=== PATIENT | male | born 1990 | race Caucasian/White ===

== ENCOUNTER 2017-08-09 17:00 | Observation (INO) | payer OTHER ==
[~2017-08-09] VITALS: Ht 175.3 cm; Wt 97.6 kg
[~2017-08-09 17:00] MED LIST: HYDR-3533 PO; OCUF0.3D OS; POLY10O OS
[2017-08-09 17:02] VITALS: BP 134/80; PULSE 96; RESP 16; TEMP 98.2; O2SAT 91; O2SAT 95
--- NOTE | 2017-08-09 17:51 | PD ---
HPI . Seizure Chief Complaint: Seizure Time Seen by Provider: 17:12 Travel History International Travel<30 days: No Contact w/Intl Traveler<30days: No Traveled to known affect area: No History of Present Illness HPI This patient presents to us following a seizure. He has a history of seizures but has not had one in the past several years. He is not currently taking anti- seizure medications. He had a witnessed seizure at his home and fell flat on his face. Rescue was called, he was immobilized and brought to the hospital. He has no complaints at this time. The etiology of the seizure is unknown. The incident occurred just prior to arrival and has now resolved. PFSH Past Medical History Hx Anticoagulant Therapy: No Cancer: No Cardiovascular Problems: No Chemotherapy: No Cerebrovascular Accident: No Diabetes: No Diminished Hearing: No Hepatitis: No Hiatal Hernia: No Medical other: Yes (CONVERSION DISORDER) Respiratory: No Immunizations Current: No Seizures: Yes (STATES HAS BEEN CLEARED OF SEIZURES FOR YEARS) Past Surgical History Eye Surgery: Yes (RT ORBITAL FX lasik) Pacemaker: No Other Surgery: No Social History Alcohol Use: Yes (OCCASIONAL) Tobacco Use: No Substance Use: No Allergies-Medications (Allergen,Severity, Reaction): Coded Allergies: No Known Allergies (Verified Adverse Reaction, Unknown, 08/09/17) Reported Meds & Prescriptions Reported Meds & Active Scripts Active Review of Systems Except as stated in HPI: all other systems reviewed are Neg Physical Exam Narrative GENERAL: Patient is now awake and alert. SKIN: warm/dry. Contusion of the forehead. HEAD: Normocephalic. EYES: Pupils equal and round. No scleral icterus. No injection or drainage. ENT: No nasal bleeding or discharge. Mucous membranes pink and moist. NECK: Trachea midline. Full range of motion without pain.. CARDIOVASCULAR: Regular rate and rhythm. Heart sounds normal. RESPIRATORY: No accessory muscle use. Clear to auscultation. Breath sounds equal bilaterally. GASTROINTESTINAL: Abdomen soft. Nontender. Bowel sounds present. Nondistended. MUSCULOSKELETAL: No obvious deformities. NEUROLOGICAL: Awake and alert. No obvious cranial nerve deficits. Motor grossly within normal limits. Normal speech. PSYCHIATRIC: Appropriate mood and affect; insight and judgment normal. Data Data Last Documented VS Vital Signs Date Time Temp Pulse Resp B/P (MAP) Pulse Ox O2 Delivery O2 Flow Rate FiO2 08/09/17 18:44 114 166/90 (115) Nasal Cannula 2.00 08/09/17 18:24 16 98 08/09/17 17:[address] Brain W/O Iv Contrast(Rout) (08/09/17 17:14) Cath For Specimen (08/09/17 18:36) Drug Screen, Random Urine (08/09/17 18:36) Lorazepam Inj (Ativan Inj) (08/09/17 18:45) Complete Blood Count With Diff (08/09/17 18:40) Basic Metabolic Panel (Bmp) (08/09/17 18:40) Ecg Monitoring (08/09/17 18:40) Iv Access Insert/Monitor (08/09/17 18:40) Oximetry (08/09/17 18:40) Sodium Chloride 0.9% Flush (Ns Flush) (08/09/17 18:45) Consult Neurology (08/09/17 ) Admit Order (Ed Use Only) (08/09/17 20:05) Labs Laboratory Tests Test 08/09/17 18:50 08/09/17 19:27 White Blood Count 22.4 TH/MM3 Red Blood Count 4.91 MIL/MM3 Hemoglobin 15.6 GM/DL Hematocrit 44.4 % Mean Corpuscular Volume 90.5 FL Mean Corpuscular Hemoglobin 31.7 PG Mean Corpuscular Hemoglobin Concent 35.0 % Red Cell Distribution Width 12.4 % Platelet Count 93 TH/MM3 Mean Platelet Volume 10.2 FL Neutrophils (%) (Auto) 75.0 % Lymphocytes (%) (Auto) 15.9 % Monocytes (%) (Auto) 5.9 % Eosinophils (%) (Auto) 0.2 % Basophils (%) (Auto) 3.0 % Neutrophils # (Auto) 16.8 TH/MM3 Lymphocytes # (Auto) 3.6 TH/MM3 Monocytes # (Auto) 1.3 TH/MM3 Eosinophils # (Auto) 0.0 TH/MM3 Basophils # (Auto) 0.7 TH/MM3 CBC Comment DIFF FINAL Differential Comment Platelet Estimate LOW Platelet Morphology Comment NORMAL Red Cell Morphology Comment NORMAL Blood Urea Nitrogen 14 MG/DL Creatinine 1.30 MG/DL Random Glucose 95 MG/DL Calcium Level 9.0 MG/DL Sodium Level 140 MEQ/L Potassium Level 3.8 MEQ/L Chloride Level 106 MEQ/L Carbon Dioxide Level 22.6 MEQ/L Anion Gap 11 MEQ/L Estimat Glomerular Filtration Rate 66 ML/MIN Urine Opiates Screen NEG Urine Barbiturates Screen NEG Urine Amphetamines Screen NEG Urine Benzodiazepines Screen POS Urine Cocaine Screen NEG Urine Cannabinoids Screen NEG MDM Medical Decision Making Medical Screen Exam Complete: Yes Emergency Medical Condition: Yes Differential Diagnosis My differential diagnosis of head trauma includes but is not limited to scalp contusion, concussion, intracerebral hemorrhage. Differential diagnosis of seizure includes but is not limited to epilepsy, electrolyte abnormality, previous stroke, closed head injury Narrative Course This patient has a known seizure disorder. He has not had a seizure for several years and is not currently taking any medications. He had a seizure today and hit his head. CT is pending to rule out intracranial injury. Assuming that is normal, I will have him follow up with his neurologist to discuss seizure medication. This patient had another seizure here. He was given Ativan 2 mg IV. Last Impressions Head CT 08/09/17 6329 Signed Impressions: Service Date/Time: Wednesday, August 09, 2017 17:47 - CONCLUSION: Stable examination. No acute intracranial abnormality is identified. David Watkins MD CBC & BMP Diagram 08/09/17 18:50 Calcium Level 9.0 Tox screen is positive for benzodiazepines but we gave him Ativan here. The patient has remained pretty somnolent here. I have had an opportunity to talk with his mother. She actually describes 2 seizures prior to presentation. He had a third seizure while here. He was never totally lucid between the seizures. Physician Communication Physician Communication Dr. Carlson Diagnosis Primary Impression: Scalp contusion Qualified Codes: S00.03XA - Contusion of scalp, initial encounter Additional Impression: Seizure Patient Instructions: General Instructions, Recurrent Seizures in Adults (DC), Scalp Contusion in Adults (ED) Additional Instructions: Follow-up with your neurologist regarding seizure medication. Disposition: 01 DISCHARGE HOME Condition: Stable Amy Yuen MD Aug 09, 2017 17:51
--- NOTE | 2017-08-09 18:13 | RADRPT ---
EXAM DATE/TIME: 08/09/2017 17:47 [facility] COMPARISON: CT BRAIN W/O CONTRAST, July 19, 2014, 23:10. INDICATIONS : Seizure with injury to right forehead. RADIATION DOSE: 65.56 CTDIvol (mGy) MEDICAL HISTORY : Seizures. Childhood seizure, Orbit fracture,conversion disorder. SURGICAL HISTORY : None. ENCOUNTER: Initial ACUITY: 1 day PAIN SCALE: 7/10 LOCATION: Right cranial TECHNIQUE: Multiple contiguous axial images were obtained of the head. Using automated exposure control and adj ustment of the mA and/or kV according to patient size, radiation dose was kept as low as reasonably a chievable to obtain optimal diagnostic quality images. DICOM format image data is available electro nically for review and comparison. FINDINGS: CEREBRUM: The ventricles are normal. No evidence of midline shift, mass lesion, hemorrhage or acute infarction . No extra-axial fluid collections are seen. POSTERIOR FOSSA: The cerebellum and brainstem are intact. The 4th ventricle is midline. The cerebellopontine angle i s unremarkable. EXTRACRANIAL: Visualized sinuses are clear. There has been prior surgery along the left orbital floor. SKULL: The calvaria is intact. No evidence of skull fracture. CONCLUSION: Stable examination. No acute intracranial abnormality is identified. David Watkins MD on August 09, 2017 at 18:09 Board Certified Radiologist. This report was verified electronically.
[2017-08-09 18:24] VITALS: BP 125/84; PULSE 75; RESP 16; O2SAT 98
[2017-08-09 18:44] VITALS: BP 166/90; PULSE 114
[2017-08-09] MEDS ORDERED: LORazepam 2 MG/ML VIAL IV PUSH ONE (18:45)
[2017-08-09] MEDS ORDERED: SODIUM CHLORIDE 0.9% FLUSH 10 ML FLUSH IVF PRN (18:45)
[2017-08-09 19:01] LABS: AUTOMATED NEUTROPHIL # 16.8 TH/MM3 (1.8-7.7); BASOPHIL # 0.7 TH/MM3 (0-0.2); EOSINOPHIL % 0.2 % (0.0-4.0); HEMATOCRIT 44.4 % (39.0-51.0); HEMOGLOBIN 15.6 GM/DL (13.0-17.0); LYMPH % 15.9 % (9.0-44.0); LYMPHOCYTE # 3.6 TH/MM3 (1.0-4.8); MEAN CELL VOLUME 90.5 FL (80.0-100.0); MEAN CORPUSCULAR HEMOGLOBIN 31.7 PG (27.0-34.0); MEAN PLATELET VOLUME 10.2 FL (7.0-11.0); MONO % 5.9 % (0.0-8.0); MONOCYTE # 1.3 TH/MM3 (0-0.9); PLATELET COUNT 93 TH/MM3 (150-450); RED BLOOD COUNT 4.91 MIL/MM3 (4.50-5.90); RED CELL DISTRIBUTION WIDTH 12.4 % (11.6-17.2); WHITE BLOOD COUNT 22.4 TH/MM3 (4.0-11.0)
[2017-08-09 19:47] LABS: BICARBONATE 22.6 MEQ/L (21.0-32.0)
[2017-08-09 19:50] LABS: CREATININE 1.3 MG/DL (0.60-1.30)
[2017-08-09] MEDS ORDERED: GADODIAMIDE PF 287 MG/ML 20 ML VIAL (for RAD MRI) IVCONTRAST ONE (20:08)
--- NOTE | 2017-08-09 20:53 | RADRPT ---
EXAM DATE/TIME: 08/09/2017 20:36 [facility] COMPARISON: CHEST SINGLE AP, August 23, 2012, 16:29. INDICATIONS : Syncope, seizure. MEDICAL HISTORY : Seizures. Childhood seizure, Orbit fracture,conversion disorder. SURGICAL HISTORY : None. ENCOUNTER: Initial ACUITY: 1 day PAIN SCORE: 0/10 LOCATION: Bilateral chest FINDINGS: Portable AP view of the chest demonstrates a normal-sized cardiac silhouette. Lungs are underinflated . EKG lines overlie the patient. There is airspace opacity at the right lung base. No pneumothorax is identified. There is slight blunting of the right costophrenic sulcus. Bones demonstrate no acute ab normality. CONCLUSION: Airspace opacity at the right lung base with an appearance suspicious for airspace consolidation. David Watkins MD on August 09, 2017 at 20:51 Board Certified Radiologist. This report was verified electronically.
[2017-08-09 21:40] VITALS: BP 126/67; PULSE 79; RESP 20; TEMP 97.1; O2SAT 96
[2017-08-09] MEDS ORDERED: LACTULOSE SYRUP 20 GM/30 ML CUP PO PRN (22:30)
[2017-08-09] MEDS ORDERED: NALOXONE HCL 0.4 MG/ML AMP IV PUSH PRN (22:30)
[2017-08-09] MEDS ORDERED: ACETAMINOPHEN 325 MG TAB PO PRN (22:30)
[2017-08-09] MEDS ORDERED: SENNOSIDES 8.6 MG TAB PO PRN (22:30)
[2017-08-09] MEDS ORDERED: MAGNESIUM HYDROXIDE SUSP 30 ML CUP PO PRN (22:30)
[2017-08-09] MEDS ORDERED: ONDANSETRON HCL 4 MG/2 ML VIAL IVP PRN (22:30)
[2017-08-09] MEDS ORDERED: SODIUM CHLORIDE 0.9% FLUSH 10 ML FLUSH IV FLUSH PRN (22:30)
[2017-08-09] MEDS ORDERED: BISACODYL 10 MG SUPP RECTAL PRN (22:30)
--- NOTE | 2017-08-09 22:41 | HHI.HP ---
HPI Service [facility] Hospitalists Primary Care Physician Isacc Carlson MD Admission Diagnosis sz Chief Complaint: patient with 3 seizures tonight Travel History International Travel<30 Days: No Contact w/Intl Traveler <30 Da: No Traveled to Known Affected Are: No History of Present Illness 26 y/o male with history of chronic tremors on xanax 4-6 times daily at 0.5mg dose has been doing well does have history of seizure but none since childhood , tonight was at [facility] at had seizure no warning signs and was [place] by [facility] given ativan with improvement was to be discharged but had 2 more seizures and now lethargic does have contusion on head hit floor after first seizure and also hit elbow which is painful on movement . I will admit and get neurology evaluation also will get MRI brain and order eeg with neurology evaluation. In er lab work showed increase WBC count and chest xray suggest possible infiltrate . I will start on Rocephin and Zithromax and follow up labs compress to head advil for headache. Past Family Social History Past Medical History tremors on Xanax followed by neurology seizure age child Past Surgical History rt orbital fracture Reported Medications xanax 0.5 mg qid for tremors Allergies: Coded Allergies: No Known Allergies (Verified Adverse Reaction, Unknown, 08/09/17) Social History occ smokes but rare no etoh Physical Exam Vital Signs Vital Signs Date Time Temp Pulse Resp B/P (MAP) Pulse Ox O2 Delivery O2 Flow Rate FiO2 08/09/17 21:51 08/09/17 18:44 114 166/90 (115) Nasal Cannula 2.00 08/09/17 18:24 75 16 125/84 (98) 98 Nasal Cannula 2.00 08/09/17 17:02 95 Nasal Cannula 2.00 08/09/17 17:02 98.2 96 16 134/80 (98) 91 Physical Exam GENERAL: This is a well-nourished, well-developed patient, in no apparent distress. SKIN: No rashes, ecchymoses or lesions. Cool and dry. HEAD: Atraumatic. Normocephalic. has bruise forehead EYES: Pupils equal round and reactive. Extraocular motions intact. No scleral icterus. No injection or drainage. ENT: Nose without bleeding, purulent drainage or septal hematoma. Throat without erythema, tonsillar hypertrophy or exudate. Uvula midline. Airway patent. NECK: Trachea midline. No JVD or lymphadenopathy. Supple, nontender, no meningeal signs. CARDIOVASCULAR: Regular rate and rhythm without murmurs, gallops, or rubs. RESPIRATORY: Clear to auscultation. Breath sounds equal bilaterally. No wheezes , rales, or rhonchi. GASTROINTESTINAL: Abdomen soft, non-tender, nondistended. No hepato-splenomegaly , or palpable masses. No guarding. MUSCULOSKELETAL: Extremities without clubbing, cyanosis, or edema. No joint tenderness, effusion, or edema noted. No calf tenderness. Negative Homans sign bilaterally. rt elow tender to palpation NEUROLOGICAL: Awake and alert. Cranial nerves II through XII intact. Motor and sensory grossly within normal limits. Five out of 5 muscle strength in all muscle groups. Normal speech. Laboratory Laboratory Tests Test 08/09/17 18:50 08/09/17 19:27 White Blood Count 22.4 Red Blood Count 4.91 Hemoglobin 15.6 Hematocrit 44.4 Mean Corpuscular Volume 90.5 Mean Corpuscular Hemoglobin 31.7 Mean Corpuscular Hemoglobin Concent 35.0 Red Cell Distribution Width 12.4 Platelet Count 93 Mean Platelet Volume 10.2 Neutrophils (%) (Auto) 75.0 Lymphocytes (%) (Auto) 15.9 Monocytes (%) (Auto) 5.9 Eosinophils (%) (Auto) 0.2 Basophils (%) (Auto) 3.0 Neutrophils # (Auto) 16.8 Lymphocytes # (Auto) 3.6 Monocytes # (Auto) 1.3 Eosinophils # (Auto) 0.0 Basophils # (Auto) 0.7 CBC Comment DIFF FINAL Differential Comment Platelet Estimate LOW Platelet Morphology Comment NORMAL Red Cell Morphology Comment NORMAL Blood Urea Nitrogen 14 Creatinine 1.30 Random Glucose 95 Calcium Level 9.0 Sodium Level 140 Potassium Level 3.8 Chloride Level 106 Carbon Dioxide Level 22.6 Anion Gap 11 Estimat Glomerular Filtration Rate 66 Urine Opiates Screen NEG Urine Barbiturates Screen NEG Urine Amphetamines Screen NEG Urine Benzodiazepines Screen POS Urine Cocaine Screen NEG Urine Cannabinoids Screen NEG Date/Time Source Procedure Growth Status 08/09/17 21:04 Blood Peripheral Aerobic Blood Culture Pending Received 08/09/17 21:04 Blood Peripheral Anaerobic Blood Culture Pending Received Result Diagram: 08/09/17 1850 08/09/17 1850 Imaging Last 24 hours Impressions Chest X-Ray 08/09/172025 Signed Impressions: Service Date/Time: Wednesday, August 09, 2017 20:36 - CONCLUSION: Airspace opacity at the right lung base with an appearance suspicious for airspace consolidation. David Watkins MD Head CT 08/09/17 1714 Signed Impressions: Service Date/Time: Wednesday, August 09, 2017 17:47 - CONCLUSION: Stable examination. No acute intracranial abnormality is identified. David Watkins MD Course in er given ativan Baltazarrini VTE Risk Assessment Caprini VTE Risk Assessment: No/Low Risk (score <= 1) Caprini Risk Assessment Model Point Value = 1 Point Value = 2 Point Value = 3 Point Value = 5 Age 41-60 Minor surgery BMI > 25 kg/m2 Swollen legs Varicose veins or History of unexplained or recurrent spontaneous Oral contraceptives or hormone replacement Sepsis (< 1 month) Serious lung disease, including pneumonia (< 1 month) Abnormal pulmonary function Acute myocardial infarction Congestive heart failure (< 1 month) History of inflammatory bowel disease Medical patient at bed rest Age 61-74 Arthroscopic surgery Major open surgery (> 45 min) Laparoscopic surgery (> 45 min) Malignancy Confined to bed (> 72 hours) Immobilizing plaster cast Central venous access Age >= 75 History of VTE Family history of VTE Factor V Leiden Prothrombin [id number] Lupus anticoagulant Anticardiolipin antibodies Elevated serum homocysteine Heparin-induced thrombocytopenia Other congenital or acquired thrombophilia Stroke (< 1 month) Elective arthroplasty Hip, pelvis, or leg fracture Acute spinal cord injury (< 1 month) Prophylaxis Regimen Total Risk Factor Score Risk Level Prophylaxis Regimen 0-1 Low Early ambulation 2 Moderate Order ONE of the following: *Sequential Compression Device (SCD) *Heparin 5000 units SQ BID 3-4 Higher Order ONE of the following medications: *Heparin 5000 units SQ TID *Enoxaparin/Lovenox 40 mg SQ daily (WT < 150 kg, CrCl > 30 mL/min) *Enoxaparin/Lovenox 30 mg SQ daily (WT < 150 kg, CrCl > 10-29 mL/min) *Enoxaparin/Lovenox 30 mg SQ BID (WT < 150 kg, CrCl > 30 mL/min) AND/OR *Sequential Compression Device (SCD) 5 or more Highest Order ONE of the following medications: *Heparin 5000 units SQ TID (Preferred with Epidurals) *Enoxaparin/Lovenox 40 mg SQ daily (WT < 150 kg, CrCl > 30 mL/min) *Enoxaparin/Lovenox 30 mg SQ daily (WT < 150 kg, CrCl > 10-29 mL/min) *Enoxaparin/Lovenox 30 mg SQ BID (WT < 150 kg, CrCl > 30 mL/min) AND *Sequential Compression Device (SCD) Assessment and Plan Problem List: (1) Seizure ICD Codes: R56.9 - Unspecified convulsions Status: Acute Plan: new onset seizures total 3 tonight will get neuro evaluation MRI brain and EEG for evaluation (2) Lung infiltrate ICD Codes: R91.8 - Other nonspecific abnormal finding of lung field Plan: no symptoms to suggest pneumonia but did have seizure and will recheck labs start rocephin and zithromax (3) Scalp contusion ICD Codes: S00.03XA - Contusion of scalp, initial encounter Status: Acute Plan: advil for pain compress cold Assessment and Plan further plan pending neurology evaluation Code Status full Discussed Condition With patient Problem Qualifiers (1) Scalp contusion: Qualified Codes: S00.03XA - Contusion of scalp, initial encounter Isacc Carlson MD Aug 09, 2017 22:41
[2017-08-09] MEDS ORDERED: LORazepam 2 MG/ML VIAL IV PUSH PRN (22:45)
[2017-08-09] MEDS ORDERED: ALPRAZolam 0.5 MG TAB PO PRN (22:45)
[2017-08-09] MEDS ORDERED: PANTOPRAZOLE SOD 20 MG DELAYED RELEASE TAB PO PRN (22:45)
[2017-08-09] MEDS ORDERED: IBUPROFEN 400 MG TAB PO PRN (22:45)
[2017-08-09 23:00] VITALS: PULSE 74
[2017-08-09] MEDS ORDERED: AZITHROMYCIN INJ 500 MG in SODIUM CHLOR 0.9% 250 ML INJ 250 ML IV ONE (23:00)
[2017-08-09] MEDS ORDERED: cefTRIAXone INJ 1,000 MG in SODIUM CHLORIDE 0.9% INJ 100 ML IV ONE (23:00)
[2017-08-10 04:00] VITALS: BP 122/80; PULSE 71; RESP 20; TEMP 97.4; O2SAT 99
--- NOTE | 2017-08-10 05:49 | RADRPT ---
EXAM DATE/TIME: 08/10/2017 05:11 [facility] COMPARISON: No previous studies available for comparison. INDICATIONS : Right elbow pain. MEDICAL HISTORY : Seizures. Childhood seizure, Orbit fracture,conversion disorder SURGICAL HISTORY : None. ENCOUNTER: Initial ACUITY: 1 day PAIN SCORE: 3/10 LOCATION: Right upper extremity FINDINGS: Bones of the right elbow are intact and normally aligned. No effusion demonstrated. Lateral view show s some posterior soft tissue swelling of the elbow, distal arm and upper forearm. No radiopaque forei gn body. CONCLUSION: Nonspecific posterior soft tissue swelling. No radiopaque foreign body or bony abnormality. David Rojas MD on August 10, 2017 at 5:48 Board Certified Radiologist. This report was verified electronically.
[2017-08-10 08:00] VITALS: BP 130/74; PULSE 69; RESP 18; TEMP 97; O2SAT 93
[2017-08-10 08:02] VITALS: PULSE 72
[2017-08-10 08:55] LABS: CHLORIDE 105 MEQ/L (98-107); SODIUM (NA) 143 MEQ/L (136-145)
[2017-08-10 08:56] LABS: AUTOMATED NEUTROPHIL # 7.5 TH/MM3 (1.8-7.7); BASOPHIL # 0.1 TH/MM3 (0-0.2); BASOPHIL % 0.6 % (0.0-2.0); EOSINOPHIL # 0.1 TH/MM3 (0-0.4); EOSINOPHIL % 0.7 % (0.0-4.0); HEMATOCRIT 43.9 % (39.0-51.0); HEMOGLOBIN 15.2 GM/DL (13.0-17.0); LYMPH % 18.6 % (9.0-44.0); MEAN CELL VOLUME 90.1 FL (80.0-100.0); MEAN CORPUSCULAR HEMOGLOBIN 31.1 PG (27.0-34.0); MEAN CORPUSCULAR HGB CONC 34.5 % (32.0-36.0); MEAN PLATELET VOLUME 9.2 FL (7.0-11.0); MONO % 7.5 % (0.0-8.0); MONOCYTE # 0.8 TH/MM3 (0-0.9); NEUT % 72.6 % (16.0-70.0); PLATELET COUNT 161 TH/MM3 (150-450); RED BLOOD COUNT 4.87 MIL/MM3 (4.50-5.90); WHITE BLOOD COUNT 10.5 TH/MM3 (4.0-11.0)
[2017-08-10 08:59] LABS: CALCIUM 9.1 MG/DL (8.5-10.1)
[2017-08-10 09:00] LABS: ALBUMIN 4.3 GM/DL (3.4-5.0); BICARBONATE 29.8 MEQ/L (21.0-32.0); BLOOD UREA NITROGEN 17 MG/DL (7-18); GLUCOSE,RANDOM 89 MG/DL (74-106); MAGNESIUM 2.4 MG/DL (1.5-2.5)
[2017-08-10] MEDS ORDERED: SODIUM CHLORIDE 0.9% FLUSH 10 ML FLUSH IV FLUSH SCH (09:00)
[2017-08-10] MEDS ORDERED: DOCUSATE SODIUM 50 MG/SENNA 8.6 MG TAB PO SCH (09:00)
[2017-08-10 09:03] LABS: ALT (GPT) 33 U/L (12-78); AST (GOT) 41 U/L (15-37); GLOMERULAR FILTRATION RATE 80 ML/MIN (>89)
[2017-08-10 09:04] LABS: TOTAL PROTEIN 7.7 GM/DL (6.4-8.2)
[2017-08-10 09:06] LABS: ALKALINE PHOSPHATASE 65 U/L (45-117)
[2017-08-10 12:00] VITALS: BP 120/83; PULSE 69; RESP 16; TEMP 98; O2SAT 96
--- NOTE | 2017-08-10 12:28 | HHI.PR ---
Subjective Remarks Patient with seizures yesterday no recollection as to what happened ,has aches all over elbow shows some swelling from fall no fracture ,scalp contusion with some swelling pending neurology evaluation and MRI ,recheck CBC now normal chest xray did suggest infiltrate will recheck with pa and lateral today Objective Vitals GENERAL: SKIN: Warm and dry. HEAD: Atraumatic. Normocephalic. scap brusing from fall EYES: Pupils equal and round. No scleral icterus. No injection or drainage. ENT: No nasal bleeding or discharge. Mucous membranes pink and moist. NECK: Trachea midline. No JVD. CARDIOVASCULAR: Regular rate and rhythm. RESPIRATORY: No accessory muscle use. Clear to auscultation. Breath sounds equal bilaterally. GASTROINTESTINAL: Abdomen soft, non-tender, nondistended. Hepatic and splenic margins not palpable. MUSCULOSKELETAL: Extremities without clubbing, cyanosis, or edema. No obvious deformities. NEUROLOGICAL: Awake and alert. No obvious cranial nerve deficits. Motor grossly within normal limits. Five out of 5 muscle strength in the arms and legs. Normal speech. PSYCHIATRIC: Appropriate mood and affect; insight and judgment normal. Vital Signs Date Time Temp Pulse Resp B/P (MAP) Pulse Ox O2 Delivery O2 Flow Rate FiO2 08/10/17 08:00 97.0 69 18 130/74 (92) 93 08/10/17 04:00 97.4 71 20 122/80 (94) 99 08/09/17 23:00 74 08/09/17 21:51 08/09/17 21:40 97.1 79 20 126/67 (86) 96 08/09/17 18:44 114 166/90 (115) Nasal Cannula 2.00 08/09/17 18:24 75 16 125/84 (98) 98 Nasal Cannula 2.00 08/09/17 17:02 95 Nasal Cannula 2.00 08/09/17 17:02 98.2 96 16 134/80 (98) 91 Result Diagram: 08/10/1780408/10/17804 Imaging Last 24 hours Impressions Chest X-Ray 08/09/172025 Signed Impressions: Service Date/Time: Wednesday, August 09, 2017 20:36 - CONCLUSION: Airspace opacity at the right lung base with an appearance suspicious for airspace consolidation. David Watkins MD Head CT 08/09/17 1714 Signed Impressions: Service Date/Time: Wednesday, August 09, 2017 17:47 - CONCLUSION: Stable examination. No acute intracranial abnormality is identified. David Watkins MD A/P Problem List: (1) Seizure ICD Codes: R56.9 - Unspecified convulsions Status: Acute Plan: new onset seizures total 3 tonight await neuro evaluation MRI brain and EEG for evaluation (2) Lung infiltrate ICD Codes: R91.8 - Other nonspecific abnormal finding of lung field Plan: no symptoms to suggest pneumonia but did have seizure and recheck labs normal and sed rate normal on rocephin and zithromax recheck chest xray (3) Scalp contusion ICD Codes: S00.03XA - Contusion of scalp, initial encounter Status: Acute Plan: advil for pain compress cold Assessment and Plan regular diet pending neuro evaluation Problem Qualifiers (1) Scalp contusion: Qualified Codes: S00.03XA - Contusion of scalp, initial encounter Isacc Carlson MD Aug 10, 2017 12:28
--- NOTE | 2017-08-10 12:42 | RADRPT ---
EXAM DATE/TIME: 08/10/2017 11:40 [facility] COMPARISON: No previous studies available for comparison. INDICATIONS : Seizures. CONTRAST: 20 cc Omniscan (gadodiamide) IV MEDICAL HISTORY : None. SURGICAL HISTORY : None. ENCOUNTER: Initial ACUITY: 1 day PAIN SCORE: 0/10 LOCATION: cranial TECHNIQUE: Multiplanar, multisequence MRI of the brain was performed both prior to and following the administrat ion of paramagnetic contrast. FINDINGS: CEREBRUM: The ventricles are normal for age. No evidence of midline shift, mass lesion, hemorrhage or acute in farction. No extraaxial fluid collections are seen. The pituitary gland and suprasellar cistern are normal in configuration. The hippocampal structures are symmetric. WHITE MATTER: No significant signal abnormalities are seen in the white matter. POSTERIOR FOSSA: The cerebellum and brainstem are intact. The 4th ventricle is midline. The cerebellopontine angle is unremarkable. The cerebellar tonsils are normal in position. DIFFUSION IMAGING: No focal areas of restricted diffusion are seen. No evidence of acute infarction. EXTRACRANIAL: The visualized portions of the orbits and paranasal sinuses are unremarkable. POST-CONTRAST: No abnormal areas of parenchymal or dural enhancement. No evidence of blood-brain barrier breakdown. CONCLUSION: Negative brain MRI examination. David Gramajo MD on August 10, 2017 at 12:34 Board Certified Radiologist. This report was verified electronically.
[2017-08-10 17:11] VITALS: BP 114/76; PULSE 56; RESP 14; TEMP 96.8; O2SAT 97
--- NOTE | 2017-08-10 18:01 | MB ---
cc: DANIELLA CORRALES M.D. DATE OF CONSULTATION 08/10/2017 REASON FOR CONSULTATION he is 26-year-old seen in neurological consultation in regards to seizures. HISTORY OF THE PRESENT ILLNESS The patient had seizure-like activity in childhood and at that time he was diagnosed with a conversion disorder at age of 13. Therefore he never took seizure medications, at least for the past few years. He has been taking Xanax 0.5 mg 4-6 tablets a day for anxiety and for tremor. He has been under stress recently. His mother was at bedside. Her had been in the hospital recently and this has been stressful to Duy. Reportedly had a seizure-like event at the [facility] yesterday and apparently he was discharged from the ER and came back with two more seizure type of events. The patient has said he does not have recollection of things that happened yesterday. He was admitted yesterday. PAST SURGICAL HISTORY There is a surgical history of right orbital fracture. PHYSICAL EXAMINATION Shows the patient to be awake and when I walked in the exam room, his mother was by the bedside as well as a young friend. He was tremoring with the right upper extremity and the nurse also had just entered the room. This trembling continued for a minute or two. He could express himself quite well and had no difficulty understanding. He follows all commands. He moved the right arm despite of it being rigid and tremoring. The right leg motor function was normal. He could gaze to the right, left, open mouth, and he could count fingers bilaterally, all of this essentially normal. He would resist when I had tried to release his arm and he had no postictal weakness. Subsequently the nursing staff brought him a Xanax tablet and I just spoke to the nursing staff again and he has been just fine ever since. His reflexes were 01-02+ throughout. Plantar responses flexor. IMAGING MRI brain negative for any acute process. ASSESSMENT Seizures yesterday, wonder if this is generally an epileptic seizure or if it was conversion disorder. He carries a diagnosis of conversion disorder since age 13 and for that reason he did not need seizure medications. He has a history of anxiety disorder on Xanax and also history of tremors that are controlled with multiple doses of Xanax daily. An EEG is to be obtained. If there are epileptiform features then definitely start anticonvulsants, otherwise continue to monitor his neurologic course. What I saw today in the hospital was a fairly typical psychosomatic event rather than an epileptic seizure type of event. Thank you for asking us to assist in his care. Daniella Corrales MD OFC/KK /5:30 PM /5:42 PM
--- NOTE | 2017-08-10 18:12 | RADRPT ---
EXAM DATE/TIME: 08/10/2017 17:52 [place] COMPARISON: CHEST SINGLE AP, August 09, 2017, 20:36. INDICATIONS : Seizures. MEDICAL HISTORY : Seizures. Childhood seizure, Orbit fracture,conversion disorder. SURGICAL HISTORY : None. ENCOUNTER: Subsequent ACUITY: 1 day PAIN SCORE: 0/10 LOCATION: Bilateral chest FINDINGS: PA and lateral views of the chest demonstrate the lungs to be symmetrically aerated without evidence of mass, infiltrate or effusion. The previously noted right lower lung infiltrate has resolved. The cardiomediastinal contours are unremarkable. Osseous structures are intact. CONCLUSION: No acute disease. Lance Lee MD on August 10, 2017 at 18:10 Board Certified Radiologist. This report was verified electronically.
--- NOTE | 2017-08-10 18:55 | HHI.DCPOC ---
Discharge Care Plan Diagnosis: (1) Seizure Additional Problems infiltrate resolved Goals to Promote Your Health * To prevent worsening of your condition and complications * To maintain your health at the optimal level Directions to Meet Your Goals Take your medications as prescribed Follow your dietary instruction Follow activity as directed Keep your appointments as scheduled Take your immunizations and boosters as scheduled If your symptoms worsen call your PCP, if no PCP go to Urgent Care Center or Emergency Room Smoking is Dangerous to Your Health. Avoid second hand smoke Call the 24-hour hour crisis hotline for domestic abuse at Isacc Carlson MD Aug 10, 2017 18:55
[2017-08-10] MEDS ORDERED: cefTRIAXone INJ 1,000 MG in SODIUM CHLORIDE 0.9% INJ 100 ML IV SCH (23:00)
[2017-08-10] MEDS ORDERED: AZITHROMYCIN INJ 500 MG in SODIUM CHLOR 0.9% 250 ML INJ 250 ML IV SCH (23:00)
== END 2017-08-10 19:30 | disposition home or self-care (01) ==
LOC: PHED 17:00 → PHEDA 20:07 → PH3B 21:39
PROVIDERS: ADMIT Internal Medicine; ATTEND Internal Medicine
DX: G40.909 Epilepsy, unspecified, not intractable, without status epilepticus (principal); R91.8 Other nonspecific abnormal finding of lung field; S00.03XA Contusion of scalp, initial encounter; F41.9 Anxiety disorder, unspecified; F44.9 Dissociative and conversion disorder, unspecified; R40.0 Somnolence; R25.1 Tremor, unspecified; B95.7 Other staphylococcus as the cause of diseases classified elsewhere
CPT/HCPCS: 70450; 70553; 71045; 71046; 73070; 80048; 80053; 80307; 83735; 85025; 85652; 86403; 87040; 87077; 87186; 87205; 96365; 99285; A9579; G0378; J0456; J0696; J2060; J7050